=== PATIENT | male | born 1960 | race Two or more races ===

== ENCOUNTER 2019-06-30 20:09 | Emergency (ER) | payer SELFPAY ==
[2019-06-30] MEDS ORDERED: metFORMIN 500 MG Tab PO ONE (21:02)
--- NOTE | 2019-06-30 21:02 | EDM.PDOC ---
ED HPI GENERAL MEDICAL PROBLEM - General Chief Complaint: Genitourinary Problem Stated Complaint: KIDNEY PAIN Time Seen by Provider: 06/30/19 20:31 Source of Information: Reports: Patient, RN Notes Reviewed History Limitations: Reports: No Limitations - History of Present Illness INITIAL COMMENTS - FREE TEXT/NARRATIVE: Patient is a 59-year-old male who presents to the ED for evaluation of left flank pain. Patient states that this started around 1 week ago, it is fairly sharp and does wrap around to his abdomen at times. He states that the pain is pretty constant in nature, but he is not having any pain with urination. He states that movement seems to make the pain worse as well. He has not tried any sort of pain medications at home for this. He states he is having a mild amount of nausea today, he states that he stayed in bed all day which is not normal for him. He feels as if he is just very rundown. He is still able to eat and drink okay. He notes that he is a diabetic as well, he recently traveled here from [place] has not set up with his primary care provider, and has subsequently run out of his metformin as well. He does not use any alcohol, drugs, nor is he a smoker. Patient denies any other chronic back issues that he has. Left Flank Pain Score (Numeric/FACES): 3 - Related Data Allergies Allergy/AdvReac Type Severity Reaction Status Date / Time No Known Allergies Allergy Verified 06/30/19 20:20 Home Meds: Home Meds metFORMIN [Glucophage XR] 500 mg PO DAILY 12/10/17 [History] metFORMIN [Glucophage] 500 mg PO BIDMEALS #60 tab 06/30/19 [Rx] Past Medical History Endocrine/Metabolic History: Reports: Diabetes, Type II - Infectious Disease History Infectious Disease History: Reports: Chicken Pox Social & Family History - Family History Family Medical History: Noncontributory - Tobacco Use Smoking Status *Q: Unknown Ever Smoked - Caffeine Use Caffeine Use: Reports: Coffee, Soda ED ROS GENERAL - Review of Systems Review Of Systems: Comprehensive ROS is negative, except as noted in HPI. Constitutional: Denies: Fever, Chills Respiratory: Denies: Shortness of Breath Cardiovascular: Denies: Chest Pain GI/Abdominal: Reports: Nausea. Denies: Abdominal Pain, Constipation, Diarrhea, Vomiting : Reports: Flank Pain (Left with radiation to lower abdomen). Denies: Dysuria , Frequency, Hematuria, Urgency Musculoskeletal: Denies: Back Pain ED EXAM, RENAL/ - Physical Exam Exam: See Below Exam Limited By: No Limitations General Appearance: Alert, WD/WN, No Apparent Distress Respiratory/Chest: No Respiratory Distress, Lungs Clear, Normal Breath Sounds, No Accessory Muscle Use, Chest Non-Tender Cardiovascular: Normal Peripheral Pulses, Regular Rate, Rhythm, No Murmur GI/Abdominal: Normal Bowel Sounds, Soft, Non-Tender, No Distention, No Mass Back Exam: No: CVA Tenderness (L), CVA Tenderness (R) Extremities: Normal Inspection, Normal Capillary Refill Neurological: Alert, Oriented, Normal Cognition, No Motor/Sensory Deficits Psychiatric: Normal Affect, Normal Mood Skin Exam: Warm, Dry, Intact, Normal Color, No Rash Course - Vital Signs Last Recorded V/S: Last Vital Signs Temp 97.1 F 06/30/19 20:21 Pulse 86 06/30/19 20: Resp 16 06/30/19 20:21 BP 155/91 H 06/30/19 20:21 Pulse Ox 97 06/30/19 20:21 - Orders/Labs/Meds Labs: Laboratory Tests 06/30/19 Range/Units 20:25 Urine Color Light yellow (Yellow) Urine Appearance Clear (Clear) Urine pH 7.0 (5.0-8.0) Ur Specific [place] 1.020 (1.005-1.030) Urine Protein Negative (Negative) Urine Glucose (UA) 2+ H (Negative) Urine Ketones Negative (Negative) Urine Occult Blood Negative (Negative) Urine Nitrite Negative (Negative) Urine Bilirubin Negative (Negative) Urine Urobilinogen 0.2 (0.2-1.0) Ur Leukocyte Esterase Negative (Negative) Urine RBC 0-5 (0-5) /hpf Urine WBC 0-5 (0-5) /hpf Ur Squamous Epith Cells 0-5 (0-5) /hpf Urine Bacteria Occasional (FEW) /hpf Urine Mucus Not seen (FEW) /hpf Meds: Medications Discontinued Medications Generic Name Dose Route Start Last Admin Trade Name Freq PRN Reason Stop Dose Admin Metformin HCl 500 mg 06/30/19 21:02 Glucophage PO 06/30/19 21:03 ONETIME ONE - Re-Assessments/Exams Free Text/Narrative Re-Assessment/Exam: 06/30/19 21:01 Patient presents to the ED for left-sided flank pain. Did order urinalysis at time of triage, this does not demonstrate any sign of UTI at this time, but he does have 2+ glucose in his urine. Patient states he has run out of his metformin at this time, I will provide him with a tablet of metformin at today' s visit, and a prescription for some on outpatient basis until he can get established with a primary care provider as he states he just moved here for work, and got here yesterday. I will have him try some general conservative measures for his flank pain over the next few days to see if this does not help. Departure - Departure Time of Disposition: 21:04 Disposition: Home, Self-Care 01 Condition: Fair Clinical Impression: Left flank pain - Discharge Information *PRESCRIPTION DRUG MONITORING PROGRAM REVIEWED*: No *COPY OF PRESCRIPTION DRUG MONITORING REPORT IN PATIENT ONE[place]: No Prescriptions: metFORMIN [Glucophage] 500 mg PO BIDMEALS #60 tab Instructions: Flank Pain, Adult, [id number] Referrals: PCP,Not In Area [Primary Care Provider] - Forms: ED Department Discharge Additional Instructions: You were evaluated in the ER today regarding your left-sided flank pain. Urinalysis was done, and demonstrates no sign of a UTI, there is no blood in the urine as well that would be suggestive of a kidney stone. You did only have a minor amount of sugar spilling over into the urine. You were given a dose of your metformin at this ER visit, and given a prescription for continuation of this. [place] pharmacy located in the [facility] [employer] [facility] or the [facility] [employer] [facility] are open until 10 PM tonight to fill this prescription otherwise there is only 1 pharmacy open tomorrow, due to it being Tuesday, your prescription was electronically sent to [facility] pharmacy located near [facility], this pharmacy is only open from 12 to 4 PM today, you will need to go there during this timeframe to obtain this medication and take as prescribed. Recommend that you take 600 mg ibuprofen every 6 hours for further pain relief over the next few days to see if this does not help relieve your pain. Do not exceed 3200 mg Ibuprofen in a 24-hour time span. Further recommend you increase your oral fluid intake as well. Keep yourself well-hydrated. You will need to set up care with a regular provider, please call [phone] to do so. Any family practice provider would be able to provide you with the services. Please call Tuesday as soon as you are able to establish care with a provider of choice. Please return to the ER if your symptoms change or worsen. Sepsis Event Note - Evaluation Sepsis Screening Result: No Definite Risk - Focused Exam Vital Signs: Vital Signs Temp Pulse Resp BP Pulse Ox 06/30/19 20:21 97.1 F 86 16 155/91 H 97 Date Exam was Performed: 06/30/19 Time Exam was Performed: 21:09
== END 2019-06-30 21:33 | disposition home or self-care (01) ==
LOC: JD.ED 20:09
DX: R10.9 Unspecified abdominal pain (principal); E11.9 Type 2 diabetes mellitus without complications; Z79.84 Long term (current) use of oral hypoglycemic drugs
CPT/HCPCS: 81001; 99284; A9270; 99283